=== PATIENT | female | born 1980 | race Caucasian/White ===

== ENCOUNTER 2022-06-05 17:54 | Outpatient (CLI) | payer OTHER, BC, SELFPAY ==
--- NOTE | ~2022-06-05 | MM_ITS ---
EXAMINATION: MM screening vern BI w eugenia HISTORY: Screening TECHNIQUE: Craniocaudal and mediolateral oblique 3-D tomosynthesis images were obtained and synthetic 2-D images were generated. CAD analysis was submitted and interpreted. COMPARISON: No prior mammogram is available for comparison at this institution. BREAST PARENCHYMAL COMPOSITION: The breasts are heterogeneously dense, which may obscure small masses FINDINGS: There are scattered bilateral breast asymmetries with possible architectural distortion codey tral aspect of the right breast on CC view. No suspicious calcifications or discrete masses. IMPRESSION: 1. Bilateral breast asymmetries. 2. Additional mammographic views and possible breast ultrasound are recommended. BI-RADS Category 0: Incomplete: Needs additional imaging evaluation. Reviewed, dictated and finalized at location B. [employer] IMPRESSION: 1. Bilateral breast asymmetries. 2. Additional mammographic views and possible breast ultrasound are recommended . BI-RADS Category 0: Incomplete: Needs additional imaging evaluation.
== END 2022-06-05 17:55 | disposition home or self-care (01) ==
PROVIDERS: PCP Nurse Practitioner Family
DX: Z12.31 Encounter for screening mammogram for malignant neoplasm of breast (principal); R92.8 Other abnormal and inconclusive findings on diagnostic imaging of breast
CPT/HCPCS: 77063; 77067

== ENCOUNTER 2022-07-31 13:52 | Outpatient (CLI) | payer OTHER, BC, SELFPAY ==
--- NOTE | ~2022-07-31 | MMUS_ITS ---
EXAMINATION: MM diagnostic vern BI w eugenia, US breast BI complete HISTORY: Bilateral mammographic asymmetries noted on 06/05/2022 screening mammogram TECHNIQUE: Additional 3-D tomosynthesis images of both breasts were performed and synthetic 2-D image s were generated. CAD analysis was submitted and interpreted. High resolution bilateral complete aldo st ultrasound examination including all 4 quadrants and subareolar areas was performed. COMPARISON: 06/05/2022 bilateral screening mammogram FINDINGS: MAMMOGRAPHIC FINDINGS: No suspicious mass is evident. There is nonspecific fibroglandular asymmetry. ULTRASOUND: Right breast: 2.2 mm cyst at 1:00 2 cm from nipple Benign-appearing 3.5 x 6.9 mm lymph node at 9:00 1 cm from nipple. No suspicious mass or shadowing is detected. Left breast: Small cluster of cysts at 11:00 3 cm from nipple, measuring up to approximately 5 mm maximal dimensio n No suspicious mass or shadowing is detected. IMPRESSION: 1. Benign findings; no mammographic or sonographic evidence of malignancy is detected 2. Routine annual mammographic screening is recommended BI-RADS Category 2: Benign finding(s). Reviewed, dictated and finalized at location A. ROLLER IMPRESSION: 1. Benign findings; no mammographic or sonographic evidence of malignancy is de tected 2. Routine annual mammographic screening is recommended BI-RADS Category 2: Benign finding(s).
== END 2022-07-31 13:53 | disposition home or self-care (01) ==
PROVIDERS: PCP Nurse Practitioner Family
DX: R92.8 Other abnormal and inconclusive findings on diagnostic imaging of breast (principal)
CPT/HCPCS: 76641; 77062; 77066; G0279

== ENCOUNTER 2024-02-13 16:04 | Outpatient (CLI) | payer BC, SELFPAY ==
--- NOTE | ~2024-02-13 | MM_ITS ---
EXAMINATION: MM screening vern BI w eugenia HISTORY: Screening TECHNIQUE: Craniocaudal and mediolateral oblique 3-D tomosynthesis images were obtained and synthetic 2-D images were generated. CAD analysis was submitted and interpreted. COMPARISON: Comparison to multiple prior studies sequentially, with oldest reviewed study dated 05/24. BREAST PARENCHYMAL COMPOSITION: Dense: The breasts are heterogeneously dense, which may obscure small masses FINDINGS: There are developing bilateral breast asymmetries. There are no suspicious calcifications. IMPRESSION: 1. Developing bilateral breast asymmetries. 2. Additional mammographic views and possible breast ultrasound are recommended. BI-RADS CATEGORY 0 - INCOMPLETE STUDY, NEED ADDITIONAL IMAGING EVALUATION. Reviewed, dictated and finalized at location B. IMPRESSION: 1. Developing bilateral breast asymmetries. 2. Additional mammographic views and possible breast ultrasound are recommended . BI-RADS CATEGORY 0 - INCOMPLETE STUDY, NEED ADDITIONAL IMAGING EVALUATION.
== END 2024-02-13 16:05 | disposition home or self-care (01) ==
DX: Z12.31 Encounter for screening mammogram for malignant neoplasm of breast (principal); R92.8 Other abnormal and inconclusive findings on diagnostic imaging of breast
CPT/HCPCS: 77063; 77067

== ENCOUNTER 2024-04-02 11:00 | Outpatient (CLI) | payer BC, SELFPAY ==
--- NOTE | ~2024-04-02 | MMUS_ITS ---
EXAMINATION: MM diagnostic vern BI w eugenia, US breast BI complete HISTORY: Follow-up breast asymmetries TECHNIQUE: Additional 3-D tomosynthesis images of the breasts were performed and synthetic 2-D images were generated. CAD analysis was submitted and interpreted. High resolution bilateral complete breas t ultrasound was performed. COMPARISON: Comparison to multiple prior studies sequentially, with oldest reviewed study dated 05/24. BREAST PARENCHYMAL COMPOSITION: Dense: The breasts are heterogeneously dense, which may obscure small masses FINDINGS: MAMMOGRAPHIC FINDINGS: Bilateral breast asymmetries are less apparent with spot compression and mediolateral views, most lik yesika superimposed fibroglandular tissue. No discrete mass, architectural distortion or suspicious calc ifications are identified. ULTRASOUND: Complete US of all 4 quadrants of the breast/s and retroareolar region was reviewed. Right breast ultrasound: There are 2 adjacent intramammary lymph node at 12:00 near the nipple, large st measuring 6 mm. At 4:00, 4 cm from the nipple there is a 5 mm intramammary lymph node. At 10:00, 5 cm from the nipple there is a 9 mm intramammary lymph node. No suspicious masses are identified to s uggest malignancy. Left breast ultrasound: Normal heterogeneous echotexture without focal mass. IMPRESSION: 1. No evidence for malignancy in either breast. Benign findings. 2. Routine yearly screening mammogram and regular clinical breast examination are recommended. BI-RADS Category 2: Benign finding(s). Reviewed, dictated and finalized at location B. IMPRESSION: 1. No evidence for malignancy in either breast. Benign findings. 2. Routine yearly screening mammogram and regular clinical breast examination a re recommended. BI-RADS Category 2: Benign finding(s).
== END 2024-04-02 11:01 | disposition home or self-care (01) ==
LOC: ANHIMG 11:01
DX: R92.8 Other abnormal and inconclusive findings on diagnostic imaging of breast (principal)
CPT/HCPCS: 76641; 77062; 77066; G0279

== ENCOUNTER 2024-12-11 19:42 | Observation (INO) | payer BC, SELFPAY ==
[2024-12-11 19:50] VITALS: BP 135/81; PULSE 116; RESP 18; TEMP 36.6; O2SAT 98
[2024-12-11] MEDS: ONDANSETRON HCL ODT 4 MG TABLET PO (22:01)
[2024-12-12] VITALS (33 sets, daily range): BP systolic 117–142; BP diastolic 69–100; PULSE 76–121; RESP 10–22; TEMP 36.2–36.6; O2SAT 94–100; BMI 19.6
--- NOTE | 2024-12-12 00:30 | ED_ITS ---
HPI - Nausea/Vomiting/Diarrhea General Chief complaint: Nausea/Vomiting/Diarrhea Stated complaint: vomiting Time Seen by Provider: 12/12/24 00:24 History of Present Illness HPI Narrative: 44-year-old female presents to the emergency department for nausea and vomiting for the past 2 days. Patient states she takes 0.25 mg injection of Wegovy Saturday. She states on Saturday of this week she accidentally administered her 's 15 mg her husbands Mounjaro. The following day she began developing nausea and vomiting which has been persistent. She has been unable to tolerate food or fluids. She is concerned she is dehydrated and is requesting IV fluids. States she did have epigastric abdominal discomfort a couple of days ago but that has since resolved and she is not having any abdominal pain. Denies dysuria, hematuria, fevers, chest pain or shortness of breath, diarrhea, obstipation. Last bowel movement was yesterday. Patient states she is taking Wegovy for weight loss. Denies ETOH or drug use. Related Data Home Medications ?Medication ?Instructions ?Recorded ?Confirmed ?Last Taken ?Type B-complex with vitamin C (Super B 1 tablet PO DAILY 11/15/20 Unknown History Complex-Vitamin C tablet) cholecalciferol (vitamin D3) 125 125 mcg PO DAILY 11/15/20 Unknown History mcg (5,000 unit) capsule folic acid 400 mcg tablet 0.4 mg PO DAILY 11/15/20 Unknown History biotin 5 mg capsule 5 mg PO DAILY 12/14/20 Unknown History Allergies Allergy/AdvReac Type Severity Reaction Status Date / Time carrot Allergy Mild Sore Throat Verified 12/12/24 00:36 Review of Systems 2 Review of Systems: All systems reviewed & are unremarkable except as noted in HPI and below PMFSH Past Medical History Medical History Mitral valve prolapse Family History Family History Mother COPD (chronic obstructive pulmonary disease) Father Arthritis Grandparent Hypertension Social History Social History Smoking status: Never smoker Alcohol intake: current Exam 2 Narrative: GENERAL: Well-appearing, well-nourished, and in no acute distress. HEAD: Normocephalic, atraumatic. EYES: EOMI. ENT: Nares clear, no rhinorrhea or epistaxis. Mucous membranes dry NECK: Supple. CHEST: Clear to auscultation. No respiratory distress. HEART: Regular rate and rhythm. No murmur heard. Normal peripheral pulses. ABDOMEN: Soft, nontender, nondistended, normal active bowel sounds. No rebound, guarding rigidity. No CVA tenderness EXTREMITIES: Normal range of motion. No edema. SKIN: Warm, dry, no rash. NEURO: No focal deficits. Alert and oriented x3 Course Vital Signs Vital signs: Vital Signs Temperature 98 F 12/11/24 19:50 Pulse Rate 116 H 12/11/24 19:50 Respiratory Rate 18 12/11/24 19:50 Blood Pressure 135/81 12/11/24 19:50 Pulse Oximetry 98 12/11/24 19:50 Oxygen Delivery Room Air 12/11/24 19:50 Temperature 97.8 F 12/12/24 00:34 Pulse Rate 101 H 12/12/24 01:16 Respiratory Rate 17 12/12/24 01:16 Blood Pressure 139/84 12/12/24 01:16 Pulse Oximetry 99 12/12/24 01:16 Oxygen Delivery Room Air 12/12/24 00:34 MDM - Nausea/Vomiting/Diarrhea MDM Narrative Medical decision making narrative: 44-year-old female presents to the emergency department for nausea and vomiting after accidentally taking her 's 15 mg dose of Mounjaro 4 days ago. See HPI for further history. Vital signs with tachycardia 116 which has since improved on my evaluation. Blood pressure stable. Patient is afebrile and nontoxic appearing. Abdomen is soft and nontender. CBC without leukocytosis or anemia. Her chemistries show mild hypokalemia of 3.2 which is been orally repleted. Magnesium within normal limits. negative. Urinalysis with 11-20 RBCs and 4+ ketones. White blood cells are leuk esterase, no nitrites. Patient states she is not currently on her menstrual cycle. No history of kidney stones. Denies any flank pain or abdominal pain. Low suspicion for ureteral lithiasis. Will provide follow-up for Urology regarding painless microscopic hematuria. Patient re-evaluated and found to be resting comfortably in exam bed. She states her nausea has improved but she still feels very dehydrated. Will provide another L of fluids and re-evaluate. Her tachycardia has resolved. Unfortunately patient failed her po challenge and began vomiting again. Will provide Reglan and reevaluate. Pending 2nd liter of fluids, repeat po challenge and reevaluation at time of sign-out to Dr. Acosta. Lab Data 12/12/24 00:42 12/12/24 00:42 Labs: Lab Results 12/12/24 12/12/24 12/12/24 Range/Units 00:41 00:42 01:15 WBC 9.4 (4.5-10.0) K/mm3 RBC 4.64 (4.2-5.4) M/mm3 Hgb 14.3 (12.0-15.0) g/dL Hct 41.3 (37.0-47.0) % MCV 89.0 (80-100) fl MCH 30.8 (26-34) pg MCHC 34.6 (32-36) g/dl RDW 11.7 (11.5-14.5) % Plt Count 282 (150-375) k/mm3 MPV 10.5 H (7.4-10.4) fl Immature Gran % (Auto) 0.2 (0-0.5) % Neut % (Auto) 68.0 (45.5-73.1) % Lymph % (Auto) 23.0 (18.3-44.2) % [place] % (Auto) 8.1 (2.6-8.5) % Eos % (Auto) 0.3 (0-4.4) % Baso % (Auto) 0.4 (0.2-1.2) % Lymph # (Auto) 2.17 (0.9-3.2) K/mm3 [place] # (Auto) 0.8 H (0.1-0.6) K/mm3 Eos # (Auto) 0.0 (0-0.3) K/mm3 Baso # (Auto) 0.0 (0.0-0.1) K/mm3 Abs Immat Gran (auto) 0.02 (0.00-0.031) K/mm3 Absolute Neuts (auto) 6.4 (1.3-6.7) K/mm3 Absolute Nucleated RBC 0.000 (0.0-0.012) K/mm3 Nucleated RBC % 0.0 (0.0-0.2) % Sodium 136 L (137-145) mmol/L Potassium 3.2 L (3.4-5.0) mmol/L Chloride 101 (98-107) mmol/L Carbon Dioxide 22 (22-30) mmol/L Anion Gap 13 H (4-12) mmol/L BUN 12 (7-17) mg/dL Creatinine 0.65 L (0.7-1.0) mg/dL Estim Creat Clear Calc 98 ml/min Estimated GFR > 60 (59 - ) Glucose 84 (65-110) mg/dL Calcium 9.4 (8.4-10.2) mg/dL Magnesium 2.0 (1.6-2.3) mg/dL Total Bilirubin 1.0 (0.2-1.3) mg/dL AST 23 (14-36) U/L ALT 14 (6-35) U/L Alkaline Phosphatase 67 (38-126) U/L Total Protein 7.8 (6.3-8.2) g/dL Albumin 4.9 (3.5-5.1) g/dL Lipase 44 (23-300) U/L Urine Color Yellow (Yellow) Urine Appearance Cloudy H (Clear) Urine pH 6.0 (5.0-9.0) Ur Specific [place] 1.022 (1.001-1.035) Urine Protein Trace (Negative) mg/dL Urine Glucose (UA) Negative (Negative) mg/dL Urine Ketones 4+ H (Negative) mg/dL Ur Blood (Man) 1+ H (Negative) Urine Nitrate Negative (Negative) Urine Bilirubin Negative (Negative) Urine Urobilinogen 1.0 (<2.0) mg/dL Leukocyte Esterase Rfl Negative (Negative) HOMER/UL Urine RBC 11-20 H (0-2) /hpf Urine WBC 0-5 (0-3) /hpf Ur Squamous Epith Cells Few (Few) /hpf Urine Bacteria Rare /hpf Urine Casts 0-2 POC Urine HCG, Qual (Negative) 12/12/24 Range/Units 01:20 WBC (4.5-10.0) K/mm3 RBC (4.2-5.4) M/mm3 Hgb (12.0-15.0) g/dL Hct (37.0-47.0) % MCV (80-100) fl MCH (26-34) pg MCHC (32-36) g/dl RDW (11.5-14.5) % Plt Count (150-375) k/mm3 MPV (7.4-10.4) fl Immature Gran % (Auto) (0-0.5) % Neut % (Auto) (45.5-73.1) % Lymph % (Auto) (18.3-44.2) % [place] % (Auto) (2.6-8.5) % Eos % (Auto) (0-4.4) % Baso % (Auto) (0.2-1.2) % Lymph # (Auto) (0.9-3.2) K/mm3 [place] # (Auto) (0.1-0.6) K/mm3 Eos # (Auto) (0-0.3) K/mm3 Baso # (Auto) (0.0-0.1) K/mm3 Abs Immat Gran (auto) (0.00-0.031) K/mm3 Absolute Neuts (auto) (1.3-6.7) K/mm3 Absolute Nucleated RBC (0.0-0.012) K/mm3 Nucleated RBC % (0.0-0.2) % Sodium (137-145) mmol/L Potassium (3.4-5.0) mmol/L Chloride (98-107) mmol/L Carbon Dioxide (22-30) mmol/L Anion Gap (4-12) mmol/L BUN (7-17) mg/dL Creatinine (0.7-1.0) mg/dL Estim Creat Clear Calc ml/min Estimated GFR (59 - ) Glucose (65-110) mg/dL Calcium (8.4-10.2) mg/dL Magnesium (1.6-2.3) mg/dL Total Bilirubin (0.2-1.3) mg/dL AST (14-36) U/L ALT (6-35) U/L Alkaline Phosphatase (38-126) U/L Total Protein (6.3-8.2) g/dL Albumin (3.5-5.1) g/dL Lipase (23-300) U/L Urine Color (Yellow) Urine Appearance (Clear) Urine pH (5.0-9.0) Ur Specific [place] (1.001-1.035) Urine Protein (Negative) mg/dL Urine Glucose (UA) (Negative) mg/dL Urine Ketones (Negative) mg/dL Ur Blood (Man) (Negative) Urine Nitrate (Negative) Urine Bilirubin (Negative) Urine Urobilinogen (<2.0) mg/dL Leukocyte Esterase Rfl (Negative) HOMER/UL Urine RBC (0-2) /hpf Urine WBC (0-3) /hpf Ur Squamous Epith Cells (Few) /hpf Urine Bacteria /hpf Urine Casts POC Urine HCG, Qual Negative (Negative) Discharge Plan Discharge Clinical Impression: Dehydration, Acute hypokalemia Hematuria Qualifiers: Hematuria type: unspecified type Qualified Code(s): R31.9 - Hematuria, unspecified Patient Disposition: Still a Patient Condition: Stable Instructions: Dehydration (ED), Hypokalemia (ED), Hematuria (ED) Patient Language: Khmer Prescriptions: New ondansetron 4 mg tablet,disintegrating 4 mg PO Q8H Qty: 14 0RF No Action biotin 5 mg capsule 5 mg PO DAILY folic acid 400 mcg tablet 0.4 mg PO DAILY B-complex with vitamin C [Super B Complex-Vitamin C] Tablet 1 tablet PO DAILY cholecalciferol (vitamin D3) 125 mcg (5,000 unit) capsule 125 mcg PO DAILY Follow-up/Referrals: Davey Luna MD [Physician] - Walter,Estela Andujar APRN [Primary Care Provider] -
[2024-12-12] MEDS: SODIUM CHLORIDE 0.9% IV 1,000 ML 999 ML IV CONT ×3 (00:39→04:08)
[2024-12-12 00:54] LABS: Basophils Percent Auto 0.4 % (0.2-1.2); Eosinophils Percent Auto 0.3 % (0-4.4); Hematocrit 41.3 % (37.0-47.0); Hemoglobin 14.3 g/dL (12.0-15.0); Immature Granulocyte Absolute 0.02 K/mm3 (0.00-0.031); Immature Granulocyte Percent A 0.2 % (0-0.5); Lymphocytes Absolute Auto 2.17 K/mm3 (0.9-3.2); Mean Corpuscular HGB Conc 34.6 g/dl (32-36); Mean Corpuscular Hemoglobin 30.8 pg (26-34); Mean Platelet Volume 10.5 fl (7.4-10.4); Monocytes Absolute Auto 0.8 K/mm3 (0.1-0.6); Monocytes Percent Auto 8.1 % (2.6-8.5); Neutrophils Absolute Auto 6.4 K/mm3 (1.3-6.7); Platelet Count Result 282 k/mm3 (150-375); Red Blood Count 4.64 M/mm3 (4.2-5.4); Red Cell Distribution Width 11.7 % (11.5-14.5); White Blood Count 9.4 K/mm3 (4.5-10.0)
[2024-12-12 01:14] LABS: Alanine Aminotransferase 14 U/L (6-35); Albumin Level 4.9 g/dL (3.5-5.1); Alkaline Phosphatase 67 U/L (38-126); Anion Gap 13 mmol/L (4-12); Aspartate Amino Transferase 23 U/L (14-36); Blood Urea Nitrogen 12 mg/dL (7-17); Calcium 9.4 mg/dL (8.4-10.2); Carbon Dioxide 22 mmol/L (22-30); Chloride 101 mmol/L (98-107); Estimated CRCL calculation 98 ml/min; Estimated Glomerular Filt Rate > 60; Glucose 84 mg/dL (65-110); Lipase 44 U/L (23-300); Potassium 3.2 mmol/L (3.4-5.0); Sodium 136 mmol/L (137-145); Total Protein 7.8 g/dL (6.3-8.2)
[2024-12-12] MEDS: ONDANSETRON INJ 4 MG/2 ML VIAL IV PUSH (01:15)
[2024-12-12 01:22] LABS: BEDSIDEPREGUCG Negative (Negative)
[2024-12-12 01:25] LABS: Add Urine Microscopic? YES; Appearance Urine Cloudy (Clear); Bacteria Urine Rare /hpf; Bilirubin Urine Negative (Negative); Blood Urine 1+ (Negative); Color Urine Yellow (Yellow); Glucose Urine UA Negative (Negative); Ketones Urine 4+ mg/dL (Negative); Leukocyte Esterase Ur Negative LEU/UL (Negative); Nitrate Urine Negative (Negative); Non Pathogenic Casts 0-2; Protein Urine Trace mg/dL (Negative); Specific Grav Ur 1.022 (1.001-1.035); Squamous Epithelial Cell Urine Few /hpf (Few); WBC Urine 0-5 /hpf (0-3)
[2024-12-12] MEDS: POTASSIUM CHLORIDE 20 MEQ PACKET (FOR LIQUID) 40 MEQ PO ×2 (01:58→08:54)
--- NOTE | 2024-12-12 02:04 | PC.NURSE ---
Patient given PO potassium per orders and for PO challenge.
--- NOTE | 2024-12-12 02:38 | PC.NURSE ---
Patient failed PO challenge. Patient vomited the PO potassium. PA notified of patient vomiting in room. Orders placed.
[2024-12-12] MEDS: METOCLOPRAMIDE HCL INJ 10 MG/2 ML VIAL IV PUSH (02:39)
--- NOTE | 2024-12-12 03:03 | PC.NURSE ---
pt ambulatory with steady gait to use restroom.
[2024-12-12] MEDS: PROCHLORPERAZINE EDISYLATE 10 MG/2 ML VIAL IV PUSH (03:12)
[2024-12-12] MEDS: diphenhydrAMINE HCl INJ 50 MG/ML VIAL 25 MG IV PUSH (03:12)
--- NOTE | 2024-12-12 06:15 | ADMGEN ---
This patient, Amy Heath, was admitted to [facility] Surg Room 314-02. Patient/family oriented to hospital policies and general routines including ID bracelet, bed and alarms, visiting hours, pain management, procedures, bathroom and other care routines, personal items, smoking policy, room service/diet, and visiting hours. Information on how to activate the Rapid Response Team has been discussed. Patient/Family are encouraged to report perceived risks to care and to ask questions if they do not understand what they are told or what they should do.
--- NOTE | 2024-12-12 07:43 | PM.IMHP ---
H&P: HPI History of Present Illness Date/Time: 12/12/24 07:43 Chief Complaint: nausea/vomiting Narrative: Amy Heath is a 44-year-old female with a past medical history of MVP who presents with nausea/vomiting for the past 2 days. Review of Systems Review of Systems: All systems reviewed & are unremarkable except as noted in HPI and below PMFSH Past Medical History Medical History Mitral valve prolapse Family History Family History Mother COPD (chronic obstructive pulmonary disease) Father Arthritis Grandparent Hypertension Social History Social History Smoking status: Never smoker Alcohol intake: never Substance use: never Do You Feel Safe in your Home?: Yes Lack of Transportation: No Lack of Food: Never True Current Housing: I Have Housing Concerned About Future Housing: No Difficulty Paying Gas/Electric Bills: No Difficulty Paying for Meds: No Currently Unemployed: No Education: Don't Know Difficulty w/ Childcare or Family Care: No Spiritual care concerns: No Meds Home Medications and Allergies Home Medications ?Medication ?Instructions ?Recorded ?Confirmed ?Type B-complex with vitamin C (Super B 1 tablet PO DAILY 11/15/20 12/12/24 History Complex-Vitamin C tablet) cholecalciferol (vitamin D3) 125 125 mcg PO DAILY 11/15/20 12/12/24 History mcg (5,000 unit) capsule folic acid 400 mcg tablet 0.4 mg PO DAILY 11/15/20 12/12/24 History biotin 5 mg capsule 5 mg PO DAILY 12/14/20 12/12/24 History ondansetron 4 mg disintegrating 4 mg PO Q8H #14 tabs 12/12/24 Rx tablet Allergies Allergy/AdvReac Type Severity Reaction Status Date / Time carrot Allergy Mild Sore Throat Verified 12/12/24 00:36 Vital Signs Vital Signs - 24 hr 12/11/24 19:50 12/12/24 00:26 12/12/24 00:27 Temperature 98 F Pulse Rate 116 H 105 H 102 H Respiratory Rate 18 15 10 L Blood Pressure 135/81 142/79 H Pulse Oximetry 98 100 100 Oxygen Delivery Room Air 12/12/24 00:31 12/12/24 00:32 12/12/24 00:34 Temperature 97.8 F Pulse Rate 108 H 98 95 Respiratory Rate 15 16 15 Blood Pressure 117/100 H 117/99 H Pulse Oximetry 99 99 100 Oxygen Delivery Room Air 12/12/24 00:45 12/12/24 00:46 12/12/24 01:00 Temperature Pulse Rate 84 88 89 Respiratory Rate 13 17 18 Blood Pressure 125/85 Pulse Oximetry 100 100 100 Oxygen Delivery 12/12/24 01:02 12/12/24 01:16 12/12/24 01:17 Temperature Pulse Rate 85 101 H 100 Respiratory Rate 17 17 17 Blood Pressure 138/94 H 139/84 Pulse Oximetry 100 99 99 Oxygen Delivery 12/12/24 01:31 12/12/24 01:32 12/12/24 01:45 Temperature Pulse Rate 83 76 82 Respiratory Rate 16 16 16 Blood Pressure 137/84 Pulse Oximetry 98 100 96 Oxygen Delivery 12/12/24 02:05 12/12/24 02:41 12/12/24 02:47 Temperature Pulse Rate 87 110 H 93 Respiratory Rate 17 22 H 13 Blood Pressure Pulse Oximetry 100 100 98 Oxygen Delivery 12/12/24 03:00 12/12/24 03:01 12/12/24 03:07 Temperature Pulse Rate 105 H 109 H 103 H Respiratory Rate 16 18 21 H Blood Pressure 140/86 132/86 Pulse Oximetry 98 98 94 Oxygen Delivery 12/12/24 03:15 12/12/24 03:30 12/12/24 03:45 Temperature Pulse Rate 121 H 90 92 Respiratory Rate 18 22 H 19 Blood Pressure Pulse Oximetry 98 94 95 Oxygen Delivery 12/12/24 03:46 12/12/24 04:00 12/12/24 04:15 Temperature Pulse Rate 89 87 76 Respiratory Rate 17 18 18 Blood Pressure 117/69 Pulse Oximetry 97 96 97 Oxygen Delivery 12/12/24 04:30 12/12/24 04:31 12/12/24 04:45 Temperature Pulse Rate 94 90 87 Respiratory Rate 15 17 16 Blood Pressure 125/73 Pulse Oximetry 100 99 100 Oxygen Delivery 12/12/24 05:00 12/12/24 05:15 12/12/24 05:16 Temperature Pulse Rate 102 H 88 86 Respiratory Rate 19 17 16 Blood Pressure 126/76 Pulse Oximetry 99 100 100 Oxygen Delivery Exam Narrative: Gen - well appearing female in no acute respiratory distress who is nontoxic-appearing lying semi recumbent in bed HEENT - normocephalic. Atraumatic. Pupils equal round and reactive. Sclera clear and anicteric. Nares patent. Oropharynx was clear. No oral lesions. Moist mucous membranes. No facial asymmetry. Neck - neck was supple. No dominant adenopathy, thyromegaly or masses. 2+ carotid upstrokes without bruits. Chest - lungs are clear to auscultation bilaterally. No wheezes or crackles. Breast exam was deferred. CV - heart was regular rate and rhythm. S1-S2. No murmurs gallops or rubs. Abd - abdomen was soft. Nontender. Nondistended. Positive bowel sounds. No organomegaly or masses. Ext - no clubbing, cyanosis or edema. 2+ DP pulses bilaterally. Neuro - patient is alert and oriented x4. Strength is 5/5 in both upper and lower extremities. Cranial nerves 2-12 are intact. Speech is clear. Psych - normal mood and affect. Patient is pleasant and cooperative. Skin - warm and dry. No rashes noted. H&P: Results Labs Labs: Short CBC 12/12/24 Range/Units 00:42 WBC 9.4 (4.5-10.0) K/mm3 Hgb 14.3 (12.0-15.0) g/dL Hct 41.3 (37.0-47.0) % Plt Count 282 (150-375) k/mm3 BMP 12/12/24 00:42 Sodium 136 L Potassium 3.2 L Chloride 101 Carbon Dioxide 22 BUN 12 Creatinine 0.65 L Glucose 84 Calcium 9.4 Liver Function 12/12/24 Range/Units 00:42 Total Bilirubin 1.0 (0.2-1.3) mg/dL AST 23 (14-36) U/L ALT 14 (6-35) U/L Alkaline Phosphatase 67 (38-126) U/L Albumin 4.9 (3.5-5.1) g/dL Urine 12/12/24 Range/Units 01:15 Urine Color Yellow (Yellow) Urine Appearance Cloudy H (Clear) Urine pH 6.0 (5.0-9.0) Ur Specific [place] 1.022 (1.001-1.035) Urine Protein Trace (Negative) mg/dL Urine Glucose (UA) Negative (Negative) mg/dL Assessment and Plan Assessment and plan (1) Nausea and vomiting: Code(s): R11.2 - Nausea with vomiting, unspecified Status: Acute (2) Dehydration: Code(s): E86.0 - Dehydration Status: Acute (3) Acute hypokalemia: Code(s): E87.6 - Hypokalemia Status: Acute (4) Hematuria: Qualifiers: Hematuria type: unspecified type Qualified Code(s): R31.9 - Hematuria, unspecified Code(s): R31.9 - Hematuria, unspecified Status: Acute Quality VTE Prophylaxis VTE prophylaxis: mechanical ordered
[2024-12-12 10:59] LABS: Potassium 4.3 mmol/L (3.4-5.0)
--- NOTE | 2024-12-12 11:24 | PM.SD2 ---
Same Day Admit/Disch: HPI History of Present Illness Chief complaint: Intractable nausea vomiting Narrative: Amy Heath is a 44 year old female who presented to the emergency department for 2 day history of nausea and vomiting. She states that she takes a 0.25 mg injection every go and her takes a 15 mg dosage of Mounjaro and states that she accidentally took her 's dosage of Mounjaro instead of her dose of Wegovy. She states that this occurred on Saturday of this week and on Saturday started experiencing nausea and vomiting which worsened until Saturday when she arrived to the emergency department. She was unable to tolerate any foods or liquids and was concerned that she became dehydrated. She also had generalized abdominal discomfort from Saturday until Saturday. Denies any alleviating factors but states that with the idea of food would make the pain and nausea worse. She states the pain and nausea was fairly constant and the vomiting was very intermittent. Denies any urinary/bowel changes. Also denies any chest pain, shortness of breath, dizziness or headaches. Denies any known sick contacts. [facility] Past Medical History Medical History Mitral valve prolapse Family History Family History Mother COPD (chronic obstructive pulmonary disease) Father Arthritis Grandparent Hypertension Social History Social History Smoking status: Never smoker Alcohol intake: never Substance use: never Do You Feel Safe in your Home?: Yes Lack of Transportation: No Lack of Food: Never True Current Housing: I Have Housing Concerned About Future Housing: No Difficulty Paying Gas/Electric Bills: No Difficulty Paying for Meds: No Currently Unemployed: No Education: Don't Know Difficulty w/ Childcare or Family Care: No Spiritual care concerns: No Same Day Admit/Disch: Med Pre-admit Medications Home Medications ?Medication ?Instructions ?Recorded ?Confirmed ?Type cholecalciferol (vitamin D3) 125 125 mcg PO DAILY 11/15/20 12/12/24 History mcg (5,000 unit) capsule folic acid 400 mcg tablet 0.4 mg PO DAILY 11/15/20 12/12/24 History biotin 5 mg capsule 5 mg PO DAILY 12/14/20 12/12/24 History ondansetron 4 mg disintegrating 4 mg PO Q8H #14 tabs 12/12/24 Rx tablet Review of Systems Review of Systems All systems reviewed & are unremarkable except as noted in HPI and below Exam Narrative: Gen - well appearing female in no acute respiratory distress who is nontoxic-appearing lying semi recumbent in bed HEENT - normocephalic. Atraumatic. Pupils equal round and reactive. Sclera clear and anicteric. Nares patent. Oropharynx was clear. No oral lesions. Moist mucous membranes. No facial asymmetry. Neck - neck was supple. No dominant adenopathy, thyromegaly or masses. 2+ carotid upstrokes without bruits. Chest - lungs are clear to auscultation bilaterally. No wheezes or crackles. Breast exam was deferred. CV - heart was regular rate and rhythm. S1-S2. No murmurs gallops or rubs. Abd - abdomen was soft. Nontender. Nondistended. Positive bowel sounds. No organomegaly or masses. Ext - no clubbing, cyanosis or edema. 2+ DP pulses bilaterally. Neuro - patient is alert and oriented x4. Strength is 5/5 in both upper and lower extremities. Cranial nerves 2-12 are intact. Speech is clear. Psych - normal mood and affect. Patient is pleasant and cooperative. Skin - warm and dry. No rashes noted. DS: Data Data Completed and Pending Labs on day of discharge: Labs from last 24 hours 12/12/24 12/12/24 12/12/24 10:48 01:20 01:15 WBC RBC Hgb Hct MCV MCH MCHC RDW Plt Count MPV Immature Gran % (Auto) Neut % (Auto) Lymph % (Auto) [place] % (Auto) Eos % (Auto) Baso % (Auto) Lymph # (Auto) [place] # (Auto) Eos # (Auto) Baso # (Auto) Abs Immat Gran (auto) Absolute Neuts (auto) Absolute Nucleated RBC Nucleated RBC % Sodium Potassium 4.3 Chloride Carbon Dioxide Anion Gap BUN Creatinine Estim Creat Clear Calc Estimated GFR Glucose Calcium Magnesium Total Bilirubin AST ALT Alkaline Phosphatase Total Protein Albumin Lipase Urine Color Yellow Urine Appearance Cloudy H Urine pH 6.0 Ur Specific [place] 1.022 Urine Protein Trace Urine Glucose (UA) Negative Urine Ketones 4+ H Ur Blood (Man) 1+ H Urine Nitrate Negative Urine Bilirubin Negative Urine Urobilinogen 1.0 Leukocyte Esterase Rfl Negative Urine RBC 11-20 H Urine WBC 0-5 Ur Squamous Epith Cells Few Urine Bacteria Rare Urine Casts 0-2 POC Urine HCG, Qual Negative 12/12/24 12/12/24 00:42 00:41 WBC 9.4 RBC 4.64 Hgb 14.3 Hct 41.3 MCV 89.0 MCH 30.8 MCHC 34.6 RDW 11.7 Plt Count 282 MPV 10.5 H Immature Gran % (Auto) 0.2 Neut % (Auto) 68.0 Lymph % (Auto) 23.0 [place] % (Auto) 8.1 Eos % (Auto) 0.3 Baso % (Auto) 0.4 Lymph # (Auto) 2.17 [place] # (Auto) 0.8 H Eos # (Auto) 0.0 Baso # (Auto) 0.0 Abs Immat Gran (auto) 0.02 Absolute Neuts (auto) 6.4 Absolute Nucleated RBC 0.000 Nucleated RBC % 0.0 Sodium 136 L Potassium 3.2 L Chloride 101 Carbon Dioxide 22 Anion Gap 13 H BUN 12 Creatinine 0.65 L Estim Creat Clear Calc 98 Estimated GFR > 60 Glucose 84 Calcium 9.4 Magnesium 2.0 Total Bilirubin 1.0 AST 23 ALT 14 Alkaline Phosphatase 67 Total Protein 7.8 Albumin 4.9 Lipase 44 Urine Color Urine Appearance Urine pH Ur Specific [place] Urine Protein Urine Glucose (UA) Urine Ketones Ur Blood (Man) Urine Nitrate Urine Bilirubin Urine Urobilinogen Leukocyte Esterase Rfl Urine RBC Urine WBC Ur Squamous Epith Cells Urine Bacteria Urine Casts POC Urine HCG, Qual DS: Summary Hospital Course Reason for hospitalization: Nausea/vomiting/diarrhea Hospital Course: Amy Heath is a 44 year old female who presented to the emergency department for 2 day history of nausea and vomiting. She states that she takes a 0.25 mg injection every go V and her takes a 15 mg dosage of Mounjaro and states that she accidentally took her 's dosage of Mounjaro instead of her dose of Wegovy. She states that this occurred on Saturday of this week and on Saturday started experiencing nausea and vomiting which worsened until Saturday when she arrived to the emergency department. She was unable to tolerate any foods or liquids and was concerned that she became dehydrated. She also had generalized abdominal discomfort from Saturday until Saturday. Denies any alleviating factors but states that with the idea of food would make the pain and nausea worse. She states the pain and nausea was fairly constant and the vomiting was very intermittent. Denies any urinary/bowel changes. Also denies any chest pain, shortness of breath, dizziness or headaches. Denies any known sick contacts. While in the ER, patient was tachycardic with heart rate of 116 which improved throughout stay in the ER. She was afebrile and nontoxic-appearing with otherwise stable vital signs. She did not have any leukocytosis or anemia upon blood work. She did have mild hypokalemia with a potassium of 3.2. Urinalysis showed 11-20 rbc's and 4+ ketones but was otherwise unremarkable. She denies any history of kidney stones and denies any flank pain or lower abdominal pain. Regarding the painless hematuria, we will encourage her to follow-up with her PCP and urologist. In the morning of 12/12, patient was given additional supplementation of potassium and her subsequent potassium levels were 4.3. Patient was also able to eat breakfast without any nausea or vomiting. She was monitored for a time and expressed great interest in being discharged. Given patient's hemodynamic stability, able to intake p.o. without complications, and corrected electrolyte imbalance, patient is stable for discharge with close follow-up with her PCP and urologist regarding her painless hematuria. Patient is amenable to this plan, plan for discharge at this time. Status at Discharge Functional status at discharge: independent ambulation Overall status at discharge: patient is back to baseline Time Spent with Patient Time attestation: Total time spent providing and/or coordinating discharge services: 45 DS: Admitting Diagnosis Discharge Date 12/12/2024 Admitting Diagnosis Nausea/vomiting, painless hematuria DS: Discharge Diagnosis Discharge Diagnosis (1) Nausea and vomiting: Code(s): R11.2 - Nausea with vomiting, unspecified Status: Acute (2) Dehydration: Code(s): E86.0 - Dehydration Status: Acute (3) Acute hypokalemia: Code(s): E87.6 - Hypokalemia Status: Acute (4) Hematuria: Qualifiers: Hematuria type: unspecified type Qualified Code(s): R31.9 - Hematuria, unspecified Code(s): R31.9 - Hematuria, unspecified Status: Acute Discharge Plan Discharge Attending physician on discharge: Mike Hopkins Consulting providers: Ian Simmons Discharging Clinician: Ian Simmons Anticipated Discharge Date/Time: 12/12/24 11:20 Patient Disposition: Home Activity: as tolerated Diet: as tolerated Discharge Instructions: Discharge disposition: Stable Take medications as prescribed Monitor blood pressures Take caution while standing, rising, or moving Change positions slowly taking a break between each position change If you standing feel dizzy sit back down and take a break Encouraged to continue with yearly vaccinations Return to the emergency department if he developed sudden shortness of breath, chest pain, nausea, vomiting, upset stomach or intractable diarrhea Return to the emergency department if you develop fever greater than 101.5 Follow-up with the primary care physician within 1-2 weeks Also follow-up with Dr. French of Urology regarding painless Hematuria You will also be given an order to obtain blood work to monitor Potassium levels, get this filled out in 3 days. Maintain adequate hydration and Thank you for [facility] for your healthcare needs Patient Instructions: Antibiotic Form Patient Language: Portuguese Stand Alone Forms: General Discharge Information Follow-up/Referrals: Phuc French MD [Physician] - Walter,Estela Andujar APRN [Primary Care Provider] - Discharge Medications: New ondansetron 4 mg tablet,disintegrating 4 mg PO Q8H Qty: 14 0RF Continued biotin 5 mg capsule 5 mg PO DAILY folic acid 400 mcg tablet 0.4 mg PO DAILY cholecalciferol (vitamin D3) 125 mcg (5,000 unit) capsule 125 mcg PO DAILY Discontinued B-complex with vitamin C [Super B Complex-Vitamin C] Tablet 1 tablet PO DAILY Other Ambulatory Orders: Comprehensive Metabolic Panel (Routine) Timeframe: 3 Days Location: Determined by Patient Ordered By: Ian Simmons Date of admission: 12/12/24 04:14 Primary Care Provider: WalterEstela Admitting Provider: Aixa Ojeda Attending physician on admission: Aixa Ojeda Condition: Stable
== END 2024-12-12 12:30 | disposition home or self-care (01) ==
LOC: ANHED 12-12 03:06 → ANH3MEDSUR 12-12 06:42
PROVIDERS: Physician Assistant; Admitting Provider Internal Medicine; Emergency Provider Physician Assistant; Visit Provider Internal Medicine
DX: R11.2 Nausea with vomiting, unspecified (principal); E86.0 Dehydration; E87.6 Hypokalemia; R31.9 Hematuria, unspecified; I34.1 Nonrheumatic mitral (valve) prolapse; Z79.85 Long-term (current) use of injectable non-insulin antidiabetic drugs
CPT/HCPCS: 36415; 80053; 81001; 81025; 83690; 83735; 84132; 85025; 96361; 96374; 96375; 99285; A9270; G0378; J0780; J1200; J2405; J2765; J7030